=== PATIENT | female | born 1930 | race Caucasian/White ===

== ENCOUNTER 2019-03-17 11:11 | Outpatient (CLI) | payer OTHER ==
[~2019-03-17] VITALS: Ht 152.4 cm; Wt 62.6 kg
== END 2019-03-17 11:20 | disposition home or self-care (01) ==
LOC: OFIC 805 11:11
DX: H90.3 Sensorineural hearing loss, bilateral (principal); H61.23 Impacted cerumen, bilateral; H92.01 Otalgia, right ear

== ENCOUNTER 2020-04-29 12:22 | Outpatient (CLI) | payer OTHER | END 2020-04-29 13:25 | disposition home or self-care (01) | LOC: NUCLEAR 12:22 | PROVIDERS: ATTEND Orthopaedic Surgery | DX: M81.0 Age-related osteoporosis without current pathological fracture (principal) ==

== ENCOUNTER 2020-07-04 11:51 | Outpatient (CLI) | payer OTHER | END 2020-07-04 12:55 | disposition home or self-care (01) | LOC: NUCLEAR 11:51 | PROVIDERS: ATTEND Internal Medicine Cardiovascular Disease | DX: I10 Essential (primary) hypertension (principal); R07.89 Other chest pain ==

== ENCOUNTER 2020-07-18 14:40 | Outpatient (CLI) | payer OTHER | END 2020-07-18 14:44 | disposition home or self-care (01) | LOC: RAD 14:40 | PROVIDERS: ATTEND Physical Medicine & Rehabilitation | DX: M11.241 Other chondrocalcinosis, right hand (principal); S62.306A Unspecified fracture of fifth metacarpal bone, right hand, initial encounter for closed fracture ==

== ENCOUNTER 2020-08-19 10:29 | Emergency (ER) | payer OTHER ==
[~2020-08-19] VITALS: Ht 162.6 cm; Wt 60.8 kg
[2020-08-19] MEDS ORDERED: ALPRAZOLAM1 MG PO (11:37)
[2020-08-19] MEDS ORDERED: GLIPIZIDE10 MG PO (11:38)
[2020-08-19] MEDS ORDERED: LOSARTAN-HCTZ1 EAC1 PO (11:39)
[2020-08-19] MEDS ORDERED: LANTUS U-100 INSULIN (11:39)
[2020-08-19] MEDS ORDERED: ADULT LOW DOSE81 M1 PO (11:44)
== END 2020-08-19 15:32 | disposition home or self-care (01) ==
LOC: ER 10:29
DX: I87.2 Venous insufficiency (chronic) (peripheral) (principal); M79.605 Pain in left leg

== ENCOUNTER 2020-08-21 12:48 | Outpatient (CLI) | payer OTHER ==
[~2020-08-21 12:48] MED LIST: ADULT LOW DOSE81 M1 PO; ALPRAZOLAM1 MG PO; GLIPIZIDE10 MG PO; LANTUS U-100 INSULIN; LOSARTAN-HCTZ1 EAC1 PO
== END 2020-08-21 16:49 | disposition home or self-care (01) ==
LOC: SONOGRAMA 12:48
PROVIDERS: ATTEND Orthopaedic Surgery
DX: M25.511 Pain in right shoulder (principal); M79.641 Pain in right hand

== ENCOUNTER 2020-12-06 | Outpatient (CLI) | payer OTHER | END 2020-12-06 12:38 | disposition home or self-care (01) | LOC: PPH VACUNA | PROVIDERS: ATTEND Emergency Medicine Pediatric Emergency Medicine | DX: Z23 Encounter for immunization (principal) ==

== ENCOUNTER 2021-03-06 13:45 | Outpatient (CLI) | payer OTHER | END 2021-03-06 14:10 | disposition home or self-care (01) | LOC: OFIC 805 13:45 | PROVIDERS: ATTEND Otolaryngology | DX: H61.23 Impacted cerumen, bilateral (principal) ==